=== PATIENT | male | born 1955 | race American Indian/Alaskan Native ===

== ENCOUNTER 2017-08-05 09:17 | Day surgery (SDC) | payer BC ==
[2017-07-29 10:24] VITALS: BMI 31.6
[2017-08-05] MEDS ORDERED: Bupivacaine-Epi 0.25%-1:200,000 PF Inj ONE (09:40)
[2017-08-05] MEDS ORDERED: ceFAZolin IV 2 gm in Dextrose 2 GM/50 ML BAG IVPB ONE (09:40)
[2017-08-05] MEDS ORDERED: Lidocaine 1% Inj (20ml) ONE (09:40)
[2017-08-05] MEDS ORDERED: ceFAZolin IV 1 gm in Dextrose 0 GM/0 ML BAG IVPB ONE (09:41)
[2017-08-05] MEDS ORDERED: Propofol 10 mg/ml Inj (20 ML) ONE (09:58)
[2017-08-05] MEDS ORDERED: Midazolam 2 MG/2 ML VIAL ONE ×2 (09:59→10:05)
[2017-08-05] MEDS ORDERED: Lactated Ringer's 1,000 ML IV ONE (10:00)
--- NOTE | 2017-08-05 10:51 | PCM.SURG1 ---
Surgeon's Initial Post Op Note - Surgeon's Notes Surgeon: Dr. Kirk Dev Technical Mgr: Dr. Boston PGY2 Type of Anesthesia: IV Sedation Pre-Operative Diagnosis: scalp lipoma Operative Findings: see dictation Post-Operative Diagnosis: same Operation Performed: excision of scalp lipoma Specimen/Specimens Removed: scalp lipoma Estimated Blood Loss: EBL {In ML}: 10 Blood Products Given: N/A Drains Used: No Drains Post-Op Condition: Good Date of Surgery/Procedure: 08/05/17 Time of Surgery/Procedure: 10:00
[2017-08-05] MEDS ORDERED: HYDROmorphone 0.5 mg/0.5 ml ISec IVP PRN (10:52)
[2017-08-05 12:21] VITALS: RESP 16; TEMP 97.6
[2017-08-05 13:33] VITALS: BP 107/62; PULSE 72; O2SAT 100
--- NOTE | 2017-08-05 19:35 | OP ---
PROCEDURE DATE: 08/05/2017 PREOPERATIVE DIAGNOSIS: Lipoma of scalp, left parietal region, approximately 3 x3 cm size. POSTOPERATIVE DIAGNOSIS: Lipoma of scalp, left parietal region, approximately 3 x3 cm size. PROCEDURE: 1. Excision of lipoma of scalp, left parietal region, 3 x3 cm size. 2. Layered closure of wound, simple 3x1 cm SURGEON: Ruddy Kirk MD. DIRECTOR OUTPATIENT SERVICES: Lelo Boston. TYPE OF ANESTHESIA: Local anesthesia with sedation. ESTIMATED BLOOD LOSS: Around 10 mL. COMPLICATIONS: None. PATHOLOGY: The lipoma was sent for the pathology. INTRAOPERATIVE FINDINGS: The patient had approximately 3 x 3 cm irregular shaped lipoma of the scalp. DESCRIPTION OF PROCEDURE: On intraoperative steps, this is a 62-year-old male, who was diagnosed with lipoma of the scalp on the left parietal region and patient was consented for excision of the lipoma. Brought to the OR, placed supine on the operating table. After induction of the sedation, the left parietal region was prepped and draped in usual sterile fashion and a transverse 3 cm incision was made. After incising skin and subcutaneous tissue, upper and lower flaps were created and dissection was carried down up to the periosteum and lipoma was completely excised and it was sent to the table for the pathology. There was proper hemostasis in each and every part of the procedure. The wound was irrigated and the wound was closed in two layers, subcutaneous with a 2-0 Vicryl and skin with a 4-0 nylon interrupted suture, and dry sterile dressing was applied. The patient tolerated the procedure well. Count of the instrument and gauze was correct. There was no apparent complication. The second part of procedure is simple layered closure of the wound. The patient tolerated the procedure well. Count of instrument and gauze was correct. uRddy Kirk MD MTDD
== END 2017-08-05 13:20 | disposition home or self-care (01) ==
LOC: C.SDS 09:17
PROVIDERS: ATTEND Surgery Surgical Critical Care
DX: D17.0 Benign lipomatous neoplasm of skin and subcutaneous tissue of head, face and neck (principal)
CPT/HCPCS: 11423; 12032; 88304; 88342; J0690; J2250; J2704; J3010; J7120

== ENCOUNTER 2018-10-03 10:52 | Outpatient (CLI) | payer BC | END 2018-10-03 10:53 | disposition home or self-care (01) | LOC: C.USIC 10:53 ==